=== PATIENT | male | born 1995 | race Caucasian/White ===

== ENCOUNTER 2016-12-05 15:03 | Emergency (ER) | payer SELFPAY ==
[~2016-12-05] VITALS: Ht 182.9 cm; Wt 83.9 kg
[2016-12-05] MEDS ORDERED: IBUPROFEN 800 MG TABLET. PO ONE (16:15)
--- NOTE | 2016-12-05 17:04 | RAD ---
Examination: Frontal view of the chest with left RIBS History: History of anterior chest pain, injury. Comparison: None available Findings: The cardiomediastinal silhouette grossly appears unremarkable. There is no acute infiltrate or visualized pneumothorax. No evidence of displaced left rib fracture. Impression: 1. No acute cardiopulmonary findings. 2. No evidence of displaced left rib fracture.
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
[2016-12-05 17:30] VITALS: BP 122/58
== END 2016-12-05 17:31 | disposition home or self-care (01) ==
LOC: ER 15:03
DX: S20.219A Contusion of unspecified front wall of thorax, initial encounter (principal); F84.0 Autistic disorder; F90.9 Attention-deficit hyperactivity disorder, unspecified type; F12.10 Cannabis abuse, uncomplicated; Z88.0 Allergy status to penicillin; X58.XXXA Exposure to other specified factors, initial encounter; Y93.89 Activity, other specified; Y99.8 Other external cause status; Y92.89 Other specified places as the place of occurrence of the external cause
CPT/HCPCS: 71101; 99284